=== PATIENT | male | born 1975 | race Two or more races ===

== ENCOUNTER 2019-08-08 05:06 | Emergency (ER) | payer OTHER ==
[~2019-08-08] VITALS: Ht 175.3 cm; Wt 81.8 kg
[2019-08-08] MEDS ORDERED: NAPR-1024 PO (05:25)
[2019-08-08] MEDS ORDERED: OMEP20 PO (05:25)
[2019-08-08] MEDS ORDERED: KETOROLAC TROMETHAMINE 60 MG/2 ML VIAL IM ONE (05:30)
[2019-08-08] MEDS ORDERED: ACETAMINOPHEN/CODEINE 300-30 MG TABLET PO ONE (05:30)
[2019-08-08] MEDS ORDERED: ACETAMINOPHEN 500 MG TABLET PO ONE (06:45)
[2019-08-08] MEDS ORDERED: MORPHINE SULFATE 4 MG/ML SYRINGE IM ONE (07:15)
[2019-08-08 08:45] VITALS: BP 139/91
== END 2019-08-08 08:48 | disposition home or self-care (01) ==
LOC: EMS 05:07
DX: S16.1XXA Strain of muscle, fascia and tendon at neck level, initial encounter (principal); M25.511 Pain in right shoulder; M54.5 Low back pain; M25.562 Pain in left knee; V49.9XXA Car occupant (driver) (passenger) injured in unspecified traffic accident, initial encounter; Y93.89 Activity, other specified; Y92.89 Other specified places as the place of occurrence of the external cause; Y99.8 Other external cause status
CPT/HCPCS: 70450; 71045; 72040; 72070; 72100; 72125; 72131; 73030; 96372; 99285; J1885; J2270